=== PATIENT | female | born 1930 | race Caucasian/White ===

== ENCOUNTER → 2016-04-30 | Outpatient (CLI) | payer MEDICARE, MEDICAID ==
[~2016-04-30] MED LIST: ASPIR-LOW81 MG PO; GABAPENTIN600 MG PO; GLUCOTROL DPS5 MG PO; HUMULIN N100 UNIT/1 SQ; HYDROCODON-ACE1 EAC4 PO; LOSARTAN-HCTZ1 EAC2 PO; MINOCIN DPS100 MG PO; MULTIVITAMINS1 EAC7 PO; PRESERVISION A1 EACH PO; PRILOSEC DPS20 MG PO; TYLENOL ARTHRI650 MG PO; VESICARE5 MG PO; ZOCOR DPS20 MG PO; ZYLOPRIM-DPS300 MG PO
== END | disposition home or self-care (01) ==
LOC: RAD.S 09:37
DX: M86.8X7 Other osteomyelitis, ankle and foot (principal)